=== PATIENT | female | born 1985 | race Caucasian/White ===

== ENCOUNTER 2018-08-31 21:56 | Inpatient (IN) | payer MEDICAID ==
[~2018-08-31] VITALS: Ht 157.5 cm; Wt 80.7 kg
[2018-08-31 22:15] VITALS: BP 127/90
--- NOTE | 2018-08-31 22:18 | NUR ---
TO LOBBY A/W BED, AMBULATORY
--- NOTE | 2018-08-31 23:10 | NUR ---
PT TAKEN TO BED 7.
--- NOTE | 2018-08-31 23:12 | NUR ---
DR. BURGOS BEDSIDE EVALUATING PT
--- NOTE | 2018-08-31 23:12 | NUR ---
33/F PRESENTS TO ED WITH FAMILY/FRIEND, C/O RUQ PAIN, X2 DAYS. REPORTS EXACERBATION AFTER EATING. REPORTS N/V X3 EPISODES TODAY. REPORTS DYSURIA. DENIES FEVER. PT AOX4, SKIN NORMAL WARM AND DRY, RR EVEN AND UNLABORED. LUNG SOUNDS CLEAR BL. BS ACTIVE X4, ABD SOFT ROUND TENDER TO RUQ. HX CHOLELITHIASIS (1 MONTH AGO) OTC MOTRIN WITHOUT RELIEF.
[2018-08-31] MEDS ORDERED: MORPHINE SULFATE 4 MG/ML SYR IVP ONE (23:25)
[2018-08-31] MEDS ORDERED: NACL 0.9% 1,000 ML IV ONE (23:25)
[2018-08-31] MEDS ORDERED: ONDANSETRON 4 MG/2 ML VIAL IVP ONE (23:25)
[2018-08-31 23:41] LABS: BASOPHILS # (AUTO) 0.1 K/uL (0.00-0.22); BASOPHILS % (AUTO) 0.6 % (0.0-2.0); EOSINOPHILS # (AUTO) 0.2 K/uL (0-0.4); EOSINOPHILS % (AUTO) 1.3 % (0.0-4.0); HEMOGLOBIN 12.6 g/dL (12.0-16.0); LYMPHOCYTES # (AUTO) 2.6 K/uL (2.5-16.5); LYMPHOCYTES % (AUTO) 20.9 % (20.5-51.1); MEAN CORPUSCULAR HEMOGLOBIN 28 pg (27-31); MEAN CORPUSCULAR HGB CONC 33 g/dL (33-37); MEAN CORPUSCULAR VOLUME 86.1 fL (80-94); MONOCYTES # (AUTO) 0.8 K/uL (0.8-1.0); NEUTROPHILS % (AUTO) 71.2 % (42.2-75.2); PLATELET COUNT (AUTO) 497 K/uL (140-450); RED BLOOD CELL COUNT(AUTO) 4.53 MIL/uL (4.20-5.40); RED CELL DISTRIBUTION WIDTH 13.3 % (11.6-13.7); WHITE BLOOD COUNT (AUTO) 12.7 K/uL (4.8-10.8)
[2018-08-31 23:41] LABS: APPEARANCE,URINE CLEAR (CLEAR); BILIRUBIN,URINE NEGATIVE (NEGATIVE); BLOOD, URINE NEGATIVE (NEGATIVE); COLOR,URINE YELLOW (YELLOW); LEUKOCYTE ESTERASE ,URINE TRACE (NEGATIVE); NITRITE, URINE NEGATIVE (NEGATIVE); UGLUCOSE NEGATIVE (NEGATIVE)
--- NOTE | 2018-08-31 23:44 | NUR ---
PT TAKEN TO CT
[2018-08-31 23:49] LABS: RBC,URINE 0-5 /HPF (0-5)
[2018-08-31 23:50] LABS: ANION GAP 12.5 (8-16); CARBON DIOXIDE 27.3 mmol/L (21-32); CREATININE 0.7 mg/dL (0.6-1.3); POTASSIUM 3.8 mmol/L (3.5-5.1)
[2018-08-31 23:57] LABS: ALBUMIN 3.6 g/dL (3.4-5.0); TOTAL BILIRUBIN 0.1 mg/dL (0.0-1.0)
[2018-09-01] MEDS ORDERED: PIPERACILLIN/TAZOBACTAM 4.5 GM in DEXTROSE 5% 100 ML IV ONE (00:50)
[2018-09-01] MEDS ORDERED: PIPERACILLIN/TAZOBACTAM 2.25 GM VIAL IV ONE (01:03)
[2018-09-01] MEDS ORDERED: DOCUSATE SODIUM 100 MG GELCAP PO PRN (01:05)
[2018-09-01] MEDS ORDERED: ONDANSETRON 4 MG/2 ML VIAL IM/IVP PRN (01:05)
[2018-09-01] MEDS ORDERED: NACL 0.9% 1,000 ML IV SCH (01:05)
[2018-09-01] MEDS ORDERED: ACETAMINOPHEN 325 MG TAB PO PRN (01:05)
--- NOTE | 2018-09-01 01:33 | NUR ---
Patient will be admitted to care of DR MARTÍNEZ. Admited to [facility]. Will go to room 112B. Belongings list completed. Report to MATHEUS MATUTE AT BEDSIDE
[2018-09-01 01:55] LABS: PROTHROMBIN TIME 8.9 secs (10.8-13.4)
[2018-09-01 02:00] VITALS: BP 121/70
--- NOTE | 2018-09-01 02:00 | NUR ---
RECIEVED PT. FROM ER , PER LETHA ,WITH C/O ABDOMINAL PAIN , HAD EPISODE OF VOMITING PRIOR TO ADMISSION , MED.SURG PT. IV SITE INTACT AND PATENT ,AAOX2 ,NOT ON DISTRESS. V/S STABLE ,ON NPO EXCEPT MEDS. AMBULATORY TO BED . WITH ZOSYN /IV STILL ON GOING. ADMISSION ASSESSEMENT DONE, PLAN OF CARE DISCUSSED ,VERBALIZE UNDERSTANDING ,MRSA COLLECTED AND SENT TO LAB. ECG DONE AT BEDSIDE , BED IN LOW POSITION, SIDERAILS UPX2 , CALL LIGHT WITHIN REACH ,WILL CONTINUE TO MONITOR.
[2018-09-01 02:01] LABS: BARBITURATE, URINE NEG. ng/ml (NEG <=200); BENZODIAZEPINE, URINE NEG. ng/mL (NEG <=200); CANNABINOID, URINE NEG. ng/mL (NEG <=50); COCAINE, URINE NEG. ng/mL (NEG <=300); OPIATE, URINE NEG. ng/mL (NEG <=2000); PHENCYCLIDINE SCREEN,URINE NEG. ng/mL (NEG <=25)
[2018-09-01 02:08] LABS: CHOL/HDL RATIO 2.5 (1-4.5); FREE T4 (FREE THYROXINE) 1.39 ng/dL (0.76-1.46); MAGNESIUM 1.9 mg/dL (1.8-2.4); PHOSPHORUS 4.2 mg/dL (2.5-4.9); THYROID STIMULATING HORMONE 1.37 uIU/mL (0.34-3.74)
--- NOTE | 2018-09-01 04:00 | NUR ---
V/S TAKEN WITHIN NORMAL LIMITS, IVF INFUSING WELL ,NPO EXCEPTS MEDS RE EMPHASIZED , CALL LIGHT WITHIN REACH ,WILL CONTINUE TO MONITOR
[2018-09-01] MEDS: HYDROcodone/APAP 10/325 MG 1 TAB TAB PO PRN (04:08)
[2018-09-01] MEDS ORDERED: PIPERACILLIN/TAZOBACTAM 3.375 GM in DEXTROSE 5% 50 ML IV SCH (06:00)
--- NOTE | 2018-09-01 06:00 | NUR ---
PT VISITED , WITH BEARABLE ABDL. PAIN AT THIS TIME PT. STATED , VOIDED FREELY ,CALL LIGHT WITHIN REACH .
--- NOTE | 2018-09-01 07:28 | NUR ---
ENDORSED TO AM SHIFT FOR CONTINUITY OF CARE .
--- NOTE | 2018-09-01 07:28 | NUR ---
RECEIVED BEDSIDE REPORT FROM MATHEUS MATUTE. PT STABLE, AWAKE, ALERT AND ORIENTED X4. NO SIGNS OF DISTRESS NOTED. NO REDNESS, SWELLING, OR INFLAMMATION NOTED ON IV SITE. PT NPO AT THIS TIME. FAMILY AT THE BEDSIDE. CALL HERNANDEZ WITHIN REACH. BED IN LOWEST POSITION. SAFETY MEASURES IN PLACE. PLAN OF CARE REVIEWED.
[2018-09-01] MEDS ORDERED: PIPERACILLIN/TAZOBACTAM 3.375 GM VIAL IV ONE ×2 (07:52→12:31)
[2018-09-01 08:00] VITALS: BP 129/54
[2018-09-01] MEDS: LACTOBACILLUS RHAMNOSUS GG 1 EACH CAP PO SCH (09:33)
--- NOTE | 2018-09-01 09:35 | NUR ---
ADMINISTERED SCHEDULED MEDICATIONS, PT TOLERATED WELL. NO OTHER NEEDS AT THIS TIME.
--- NOTE | 2018-09-01 10:21 | NUR ---
OBTAINED CONSENT FROM PT FOR LAPAROSCOPIC/POSSIBLE OPEN APPENDECTOMY.
[2018-09-01] MEDS ORDERED: PIPER/TAZO 3.375GM/D5W PREMIX 50 ML IV SCH (12:00)
--- NOTE | 2018-09-01 12:10 | NUR ---
SURGICAL CHECKLIST WAS NOT DONE DUE TO PT'S NAME WAS NOT ON THE OR BOARD. INSTRUCTED PT TO REMOVE ALL JEWELRY, ACCESSORIES, AND CLOTHING ASIDE FROM THE GOWN IN PREPARATION OF THE SURGERY. PT VERBALIZED UNDERSTANDING. CHECKED TEST, NEGATIVE. TYPE AND SCREEN DONE. PT TAKEN TO THE OR. Addendum: 09/01/18 at 1231 by Slim Logan RN GAVE REPORT TO JALOUSIES INSTALLERMATHEUS BONNER.
[2018-09-01] MEDS ORDERED: ONDANSETRON 4 MG/2 ML VIAL IVP ONE (12:13)
[2018-09-01] MEDS ORDERED: DESFLURANE 240 ML BTL INH ONE (12:13)
[2018-09-01] MEDS ORDERED: SUCCINYLCHOLINE CHLORIDE 200 MG/10 ML VIAL IV ONE (12:13)
[2018-09-01] MEDS ORDERED: KETOROLAC 30 MG/ML VIAL IVP ONE (12:13)
[2018-09-01] MEDS ORDERED: ROCURONIUM 50 MG/5 ML VIAL IV ONE (12:13)
[2018-09-01] MEDS ORDERED: LIDOCAINE 2% 100 MG/5 ML SYR IVP ONE (12:13)
[2018-09-01] MEDS ORDERED: PROPOFOL 200 MG/20 ML VIAL IV ONE (12:13)
[2018-09-01] MEDS ORDERED: DEXAMETHASONE 4 MG/ML VIAL IVP ONE (12:13)
[2018-09-01] MEDS ORDERED: BUPIVACAINE-MPF/EPI 0.25% 30 ML VIAL INJ ONE (12:33)
[2018-09-01] MEDS ORDERED: fentaNYL 0.05 MG/ML VIAL ONE (12:35)
[2018-09-01] MEDS ORDERED: MIDAZOLAM 2 MG/2 ML VIAL ONE (12:35)
[2018-09-01] MEDS ORDERED: ONDANSETRON 4 MG/2 ML VIAL IVP PRN (12:55)
[2018-09-01] MEDS: HYDROmorphone 1 MG/ML AMP IVP PRN ×4 (13:40→14:10)
[2018-09-01] MEDS ORDERED: HYDROmorphone PFS 2 MG/ML SYR ONE (13:59)
[2018-09-01 14:30] VITALS: BP 111/64
--- NOTE | 2018-09-01 14:30 | NUR ---
PT CAME BACK IN THE UNIT FROM OR. PT STABLE, AWAKE, ALERT AND ORIENTED X4. RECEIVED BEDSIDE REPORT FROM LAMBSKIN TRIMMER ALFREDA OLMOS. VITAL SIGNS TAKEN, PT STABLE. NO OTHER NEEDS AT THIS TIME.
[2018-09-01] MEDS: DEXT 5% / NACL 0.45% 1,000 ML IV SCH ×2 (14:53→23:11)
[2018-09-01] MEDS: MORPHINE SULFATE 2 MG/ML SYR IVP PRN ×2 (14:54→20:02)
--- NOTE | 2018-09-01 14:55 | NUR ---
ADMINISTERED SCHEDULED ZOSYN DUE TO IT WAS LAST GIVEN AT 0744. ADMINISTERED PRN MORPHINE FOR 10/10 ABDOMINAL PAIN. PT TOLERATED WELL. WILL CONTINUE TO MONITOR.
[2018-09-01 16:00] VITALS: BP 111/63
--- NOTE | 2018-09-01 16:20 | NUR ---
VITAL SIGNS TAKEN, PT STABLE. NO OTHER NEEDS AT THIS TIME.
--- NOTE | 2018-09-01 17:15 | NUR ---
PT IS STABLE AT THIS TIME. FAMILY AT THE BEDSIDE. PT DENIES PAIN OR SOB. WILL CONTINUE TO MONITOR.
--- NOTE | 2018-09-01 19:25 | NUR ---
RECIEVED PT ,AWAKE ON BED , S/P EX LAP ,APPENDECTOMY , SURGICAL INCISSION INTACT AND NO BLEEDING NOTED , V/S WNL , IV SITE INTACT AND PATENT , ON CLEAR LIQ. DIET , CALL LIGHT WITHIN REACH , BED IN LOW POSITION , SIDERAILS UP X2 ,PLAN OF CARE DISCUSSED , VERBALIZE UNDERSTANDING , WILL CONTINUE TO MONITOR.
--- NOTE | 2018-09-01 19:25 | NUR ---
ENDORSED PT TO MATHEUS MATUTE FOR CONTINUITY OF CARE. PT STABLE.
--- NOTE | 2018-09-01 20:05 | NUR ---
COMPLAINING OF PAIN , MORPHINE SO4 GIVEN ORDERED PRN FOR PAIN ,WILL CONTINUE TO MONITOR .
[2018-09-01 20:17] VITALS: BP 142/72
--- NOTE | 2018-09-01 21:00 | NUR ---
STILL IN PAIN -SURGICAL INCISSION I NTACT , TYLENOL GIVEN P.O ORDERED , WILL CONTINUE TO MONITOR.
[2018-09-01] MEDS: PIPER/TAZO 3.375GM/D5W PREMIX 50 ML IV SCH (21:14)
--- NOTE | 2018-09-01 22:00 | NUR ---
MADE ROUNDS , PT IS WITH BERABLE PAIN AT THIS TIME BUT COMPLAINING OF ITCHINESS ON ABDOMEN MORE PARTICULARLY ON INCISSION SITE , INCISSION SITE INTACT , REFERRED TO JOANIE FOR FURTHER ASSESSMENT , V/S WNL. CALL LIGHT WITHIN REACH
--- NOTE | 2018-09-01 22:22 | NUR ---
S/E BY GUY NAIR TAB. GIVEN P.O ORDERED FOR ITCHINESS ,WILL CONTINUE TO MONITOR , CALL LIGHT WITHIN REACH .
--- NOTE | 2018-09-02 | NUR ---
MADE ROUNDS , V/S WNL , COMPLAINING OF REDNESS IN THE LEFT EYE , S/E BY JOANIE , NO FUTHER ORDERS MADE , WILL CONTINUE TO MONITOR , CALL LIGHT WITHIN REACH .
--- NOTE | 2018-09-02 01:30 | NUR ---
MADE ROUNDS NO FURTHER COMPLAINS MADE AT THIS TIME .
[2018-09-02] MEDS: PIPER/TAZO 3.375GM/D5W PREMIX 50 ML IV SCH ×2 (02:39→08:38)
[2018-09-02] MEDS: DEXT 5% / NACL 0.45% 1,000 ML IV SCH (02:40)
--- NOTE | 2018-09-02 04:00 | NUR ---
V/S TAKEN WNL. PT. COMPLAINING OF PAIN IN INCISSION SITE THERE IS BLOOD STREAK ON IT , REFER TO JOANIE FOR FURTHER ASSESSMENT OF BLOOD STREAK ON SURGICAL WOUND. WILL MEDICATE FOR PAIN ORDERED.
[2018-09-02] MEDS: MORPHINE SULFATE 2 MG/ML SYR IVP PRN (04:42)
--- NOTE | 2018-09-02 04:45 | NUR ---
S/E BY JOANIE NAIR SAID THE BLOOD STREAK ON SURGICAL WOUND IS OK LONG DON'T STRACH IT. NO ACTIVE BLEEDING NOTED ,SURGICAL WOUND IS INTACT. MORPHINE SO4 TIV GIVEN FOR PAIN ORDERED , CALL LIGHT WITHIN ,WILL CONTINUE TO MONITOR.
--- NOTE | 2018-09-02 06:00 | NUR ---
MADE ROUNDS , SLEEPING ON BED , NO S/SX OF DISTRESS NOTED AT THIS TIME. CALL LIGHT IS WITHIN REACH.
--- NOTE | 2018-09-02 06:32 | NUR ---
PATIENT HAS BEEN SCREENED AND CATEGORIZED LOW NUTRITION RISK. PATIENT WILL BE SEEN WITHIN 7 DAYS OF ADMISSION. 09/07/18 CLEMENT VALERA MS, RDN
--- NOTE | 2018-09-02 07:25 | NUR ---
ENDORSED TO AM SHIFT NURSE FOR CONTINUITY OF CARE.
--- NOTE | 2018-09-02 07:26 | NUR ---
RECEIVED BEDSIDE REPORT FROM NIGHT NURSE. PT IS STABLE WITH NO DISTRESS BREATHING UNLABORED. PT HAS A THREE SEALED INCISIONS ON ABDOMEN FROM LAPOROSCOPIC APPENDECTOMY ACCORDING TO NIGHT NURSE ON 09/01. ASSESSED THESE AND FOUND NO DRAINAGE, SWELLING, REDNESS, WARMTH. PATIENT HAS LEFT ANTECUBITAL IV THAT IS PATENT AND ASYMPTOMATIC WITH D5 1/2 NS AT 100ML/HR AT THIS TIME. ALL SAFETY MEASURES IN PLACE WITH CALL LIGHT WITHIN REACH. PT IS AOX4.
[2018-09-02 08:00] VITALS: BP 121/80
[2018-09-02 08:02] LABS: BASOPHILS % (AUTO) 0.1 % (0.0-2.0); EOSINOPHILS % (AUTO) 0.1 % (0.0-4.0); HEMATOCRIT 34.5 % (36-48); HEMOGLOBIN 11.3 g/dL (12.0-16.0); LYMPHOCYTES # (AUTO) 1.6 K/uL (2.5-16.5); LYMPHOCYTES % (AUTO) 11.2 % (20.5-51.1); MEAN CORPUSCULAR HEMOGLOBIN 28 pg (27-31); MEAN CORPUSCULAR HGB CONC 33 g/dL (33-37); MEAN CORPUSCULAR VOLUME 86.4 fL (80-94); MONOCYTES # (AUTO) 0.7 K/uL (0.8-1.0); MONOCYTES % (AUTO) 4.6 % (1.7-9.3); NEUTROPHILS # (AUTO) 11.9 K/uL (1.8-7.7); PLATELET COUNT (AUTO) 468 K/uL (140-450); RED BLOOD CELL COUNT(AUTO) 3.99 MIL/uL (4.20-5.40); RED CELL DISTRIBUTION WIDTH 13.2 % (11.6-13.7); WHITE BLOOD COUNT (AUTO) 14.2 K/uL (4.8-10.8)
--- NOTE | 2018-09-02 08:15 | NUR ---
SPOKE WITH DR ZELAYA AND INFORMED HER OF PATIENT REPORTED 10/10 PAIN AND LAST DOSAGE OF MORPHINE ADMINISTRATION. SHE INFORMED ME TO ADMINISTER NORCO FOR THE PATIENT. ALSO CLARIFIED WITH HER THE DILAUDID ORDER THAT WAS ACTIVE REGARDING [id number] FOR PAIN. SHE INFORMED ME SHE WOULD DC THAT ORDER.
[2018-09-02] MEDS ORDERED: NACL 0.9% 1,000 ML IV SCH (08:20)
--- NOTE | 2018-09-02 08:20 | NUR ---
DR MATA VERBALLY INFORMED ME AT BEDSIDE THAT PATIENT WOUND CARE TO BE BAND AIDS TO EACH INCISION SITE, ADVANCE TO REGULAR DIET, AND HE HAS CLEARED THE PATIENT FOR DISCHARGE ON HIS ASSESSMENT AND TO INFORM THE RESIDENT MD OF THIS. INFORMED DR HOLLINS.
[2018-09-02 08:23] LABS: ANION GAP 13.9 (8-16); CARBON DIOXIDE 26.1 mmol/L (21-32); CREATININE 0.9 mg/dL (0.6-1.3)
--- NOTE | 2018-09-02 08:30 | NUR ---
CLARIFIED WITH DR HOLLINS OF [facility] PT SHOULD BE ON NS AT 60ML/HR OR CONTINUE THE D5 1/2 NS IV THERAPY. HE CONFIRMED TO GIVE THE NORMAL SALINE ORDERED.
[2018-09-02] MEDS: LACTOBACILLUS RHAMNOSUS GG 1 EACH CAP PO SCH (08:37)
[2018-09-02] MEDS: HYDROcodone/APAP 10/325 MG 1 TAB TAB PO PRN (08:38)
--- NOTE | 2018-09-02 08:40 | NUR ---
PT RESTING IN BED NO REQUESTS AT THIS TIME, AT BEDSIDE. NO SIGNS OF DISTRESS BREATHING UNLABORED.
[2018-09-02 09:05] LABS: MAGNESIUM 1.8 mg/dL (1.8-2.4); PHOSPHORUS 3.3 mg/dL (2.5-4.9)
--- NOTE | 2018-09-02 10:15 | NUR ---
APPLIED THREE BANDAIDS TOTAL TO THE THREE ABDOMINAL SURGICAL INCISIONS SITES PER DR MATA'S REQUEST TO ME DIRECTLY.
--- NOTE | 2018-09-02 10:52 | NUR ---
PT RESTING IN BED, SITTING IN BED WITH HER WHILE PT TALKS ON PHONE. PT DENIES ANY REQUESTS AND HAS NO SIGNS OF DISTRESS AT THIS TIME.
--- NOTE | 2018-09-02 11:05 | NUR ---
PT ASKING IF SHE CAN BRING BALLOONS. INFORMED HER SHE CAN'T, NO OTHER REQUESTS AT THIS TIME.
[2018-09-02] MEDS ORDERED: LEVO500T2 PO (12:05)
[2018-09-02] MEDS ORDERED: HYDR-5122 PO (12:06)
--- NOTE | 2018-09-02 12:09 | NUR ---
DR ZELAYA CALLED ME AND ASKED IF I COULD AMBULATE PATIENT AND HAVE HER EAT A REGULAR MEAL PRIOR TO DISCHARGE TO SEE HOW SHE TOLERATES BOTH BEFORE LEAVING HOSPITAL.
--- NOTE | 2018-09-02 12:20 | NUR ---
PT IS RESTING IN BED ABOUT TO EAT LUNCH NO REQUESTS OR SIGNS OF DISTRESS. MALE VISITOR AT BEDSIDE HAS NO REQUEST EITHER.
--- NOTE | 2018-09-02 13:06 | NUR ---
PATIENT ATE REGULAR MEAL LUNCH STATES SHE TOLERATED IT WELL AND FEELS OKAY. ASSISTED PT STAND BY ASSIST TO BATHROOM WHERE SHE STATES SHE IS GOING TO TRY AND HAVE A BOWEL MOVEMENT. PT ABLE TO AMBULATE WHILE HOLDING IV POLE SLOWLY, BUT STEADY.
--- NOTE | 2018-09-02 13:15 | NUR ---
AMBULATED WITH PATIENT ABOUT 100 FEET, PT TOLERATED SLOW AND STEADY JUST STATING SHE IS STILL SORE AND NEEDS TO TAKE THINGS SLOWLY.
--- NOTE | 2018-09-02 13:25 | NUR ---
INFORMED DR ZELAYA OF PATIENT AMBULATION, LACK OF BOWEL MOVEMENT TODAY, AND PT ASKING IF SHE IS GOING TO GET A PAIN PRESCRIPTION. DR. ZELAYA STATES SHE WILL PROVIDE ME WITH PRESCRIPTION TO GIVE PATIENT AND THEN SHE IS OKAY TO DISCHARGE.
--- NOTE | 2018-09-02 14:34 | NUR ---
REVIEWED DISCHARGE PAPERWORK WITH PATIENT. PT IS ACCOMPANIED BY AND MALE VISITOR. IV REMOVED WITH TIP INTACT. ID BANDS REMOVED, PT REQUESTED THE BANDS BE ADDED TO HER DISCHARGE PACKET FOR HER DAUGHTER TO KEEP. DID SO PER HER REQUEST. PRESCRIPTIONS WITH PATIENT AND ALSO REVIEWED WITH PATIENT. ALL BELONGINGS WITH PATIENT AND CLOSETS AND DRAWERS ASSESSED. 3 DISCHARGE PHOTOGRAPHS TAKEN FOR EACH SURGICAL INCISION ON ABDOMEN. IV LINES DISPOSED OF IN ROOM WITH ALL PATIENT IDENTIFIERS REMOVED. WHEELCHAIRED PATIENT TO FRONT OF HOSPITAL WHERE HER DROVE HER HOME.
[2018-09-04 06:12] LABS: CHLAMYDIA TRACHOMATIS AMP DNA Negative (Negative)
== END 2018-09-02 14:47 | disposition home or self-care (01) | DRG 342 ==
LOC: MED 21:56 → MTU 09-01 01:04
PROVIDERS: ADMIT General Practice; ATTEND General Practice
PROC: 0DTJ4ZZ Resection of Appendix, Percutaneous Endoscopic Approach (ICD-10-PCS; principal; 2018-09-01 12:30)
DX: K35.80 Unspecified acute appendicitis (principal); N39.0 Urinary tract infection, site not specified; K57.90 Diverticulosis of intestine, part unspecified, without perforation or abscess without bleeding; N83.201 Unspecified ovarian cyst, right side; E66.9 Obesity, unspecified; Z68.32 Body mass index [BMI] 32.0-32.9, adult
CPT/HCPCS: 36415; 71045; 80048; 80053; 80305; 81001; 82150; 82374; 83036; 83690; 83735; 83880; 84100; 84134; 84439; 84443; 84484; 85025; 85610; 85730; 86886; 86900; 86901; 87040; 87081; 87086; 87491; 88304; 93005; 96361; 96365; 96375; 99285; J0330; J1100; J1170; J1644; J1885; J2001; J2250; J2270; J2405; J2543; J2704; J3010; J3490; J7030; J7060; Q0092; Q0163

== ENCOUNTER 2018-09-09 01:06 | Emergency (ER) | payer MEDICAID ==
[~2018-09-09] VITALS: Ht 154.9 cm; Wt 83.9 kg
[~2018-09-09 01:06] MED LIST: HYDR-5122 PO; LEVO500T2 PO
[2018-09-09 01:13] VITALS: BP 126/82
--- NOTE | 2018-09-09 01:20 | NUR ---
PT BIB SELF FOR UPPER ABD PAIN SINCE YESTERDAY. PT STATES SHE WAS LAYING DOWN WHEN PAIN STARTED. INCISIONS NOTED TO ABD , APPEARS TO BE HEALING WELL, NO DRAINAGE OR BLEEDING. ABD IS ROUND, SOFT, TENDER TO UPPER QUADRANTS. PT IS AWAKE AND ALERT, AT BEDSIDE.
--- NOTE | 2018-09-09 01:25 | NUR ---
DR OLEA AT BEDSIDE EVALUATING PT.
[2018-09-09] MEDS ORDERED: MORPHINE SULFATE 4 MG/ML SYR IVP ONE (01:30)
[2018-09-09] MEDS ORDERED: NACL 0.9% 1,000 ML IV ONE (01:30)
[2018-09-09 01:57] LABS: BASOPHILS % (AUTO) 0.4 % (0.0-2.0); EOSINOPHILS # (AUTO) 0.2 K/uL (0-0.4); EOSINOPHILS % (AUTO) 1.5 % (0.0-4.0); HEMATOCRIT 36.1 % (36-48); HEMOGLOBIN 11.8 g/dL (12.0-16.0); LYMPHOCYTES # (AUTO) 2.8 K/uL (2.5-16.5); LYMPHOCYTES % (AUTO) 25.4 % (20.5-51.1); MEAN CORPUSCULAR HEMOGLOBIN 28 pg (27-31); MEAN CORPUSCULAR HGB CONC 33 g/dL (33-37); MONOCYTES # (AUTO) 0.8 K/uL (0.8-1.0); MONOCYTES % (AUTO) 7.6 % (1.7-9.3); NEUTROPHILS # (AUTO) 7.1 K/uL (1.8-7.7); NEUTROPHILS % (AUTO) 65.1 % (42.2-75.2); PLATELET COUNT (AUTO) 477 K/uL (140-450); RED CELL DISTRIBUTION WIDTH 13.6 % (11.6-13.7)
[2018-09-09 01:58] LABS: APPEARANCE,URINE HAZY (CLEAR); BILIRUBIN,URINE NEGATIVE (NEGATIVE); BLOOD, URINE NEGATIVE (NEGATIVE); COLOR,URINE YELLOW (YELLOW); LEUKOCYTE ESTERASE ,URINE 2+ (NEGATIVE); NITRITE, URINE NEGATIVE (NEGATIVE); UGLUCOSE NEGATIVE (NEGATIVE)
[2018-09-09 02:11] LABS: RBC,URINE 0-5 /HPF (0-5)
[2018-09-09 02:13] LABS: ANION GAP 11.3 (8-16); CARBON DIOXIDE 27.6 mmol/L (21-32); CREATININE 0.7 mg/dL (0.6-1.3); POTASSIUM 3.9 mmol/L (3.5-5.1)
[2018-09-09 02:20] LABS: ALBUMIN 3.5 g/dL (3.4-5.0); TOTAL BILIRUBIN 0.2 mg/dL (0.0-1.0)
--- NOTE | 2018-09-09 03:02 | NUR ---
PT BACK IN BED FROM BR, SAFETY PRECAUTIONS IMPLEMENTED; PT POSITIONED FOR COMFORT.
[2018-09-09] MEDS ORDERED: cefTRIAXone 1,000 MG VIAL ONE (03:10)
[2018-09-09 03:24] VITALS: BP 121/79
--- NOTE | 2018-09-09 03:24 | NUR ---
Patient discharged with v/s stable. Written and verbal after care instructions given and explained. Patient alert, oriented and verbalized understanding of instructions. Ambulatory with steady gait. All questions addressed prior to discharge. ID band removed. Patient advised to follow up with PMD. Rx of Acetaminophen and Macrobid given. Patient educated on indication of medication including possible reaction and side effects. Opportunity to ask questions provided and answered.
== END 2018-09-09 03:24 | disposition home or self-care (01) ==
LOC: MED 01:06
DX: K80.80 Other cholelithiasis without obstruction (principal); N39.0 Urinary tract infection, site not specified; Z90.49 Acquired absence of other specified parts of digestive tract; Z79.899 Other long term (current) drug therapy
CPT/HCPCS: 36415; 76705; 80053; 81001; 81025; 82150; 83690; 85025; 87086; 96365; 96375; 99284; J0696; J2270; J7030; Q0092

== ENCOUNTER 2018-09-19 23:54 | Inpatient (IN) | payer MEDICAID ==
[~2018-09-19] VITALS: Ht 154.9 cm; Wt 83.9 kg
[2018-09-19 23:58] VITALS: BP 118/83
--- NOTE | 2018-09-19 23:58 | NUR ---
TO BED # 08 AMBULATORY
--- NOTE | 2018-09-20 00:05 | NUR ---
Mahesh blanco in ED - 09/20/18 at 0149 by BILL PT AMBULATED TO BATHROOM. COMFORT MEASURES OFFERED. PT TOLERATED WELL. EMD MADE AWARE.
[2018-09-20] MEDS ORDERED: NACL 0.9% 1,000 ML IV ONE (00:15)
[2018-09-20] MEDS ORDERED: MORPHINE SULFATE 4 MG/ML SYR IVP ONE (00:15)
--- NOTE | 2018-09-20 00:15 | NUR ---
PT CAME INTO ER C/O OF UPPER QUADRANT PAIN. PAIN LEVEL 10/10, STABBING PAIN. PT STATED "I HAVE GALLSTONES, AND YESTERDAY THE PAIN BECAME WORSE." DENIES N/V/D. PT HAD APPENDIX REMOVED ON SEPTEMBER 01. SAFETY MEASURES IN PLACE. WAITING FOR ERMD TO EVALUATE PT.
[2018-09-20] MEDS ORDERED: PIPERACILLIN/TAZOBACTAM 3.375 GM in DEXTROSE 5% 50 ML IV ONE (00:25)
[2018-09-20] MEDS ORDERED: ACETAMINOPHEN 325 MG TAB PO PRN (00:25)
[2018-09-20] MEDS ORDERED: ONDANSETRON 4 MG/2 ML VIAL IVP PRN (00:25)
[2018-09-20 00:35] LABS: BASOPHILS # (AUTO) 0.1 K/uL (0.00-0.22); BASOPHILS % (AUTO) 0.7 % (0.0-2.0); EOSINOPHILS # (AUTO) 0.2 K/uL (0-0.4); EOSINOPHILS % (AUTO) 2.3 % (0.0-4.0); HEMATOCRIT 34.4 % (36-48); HEMOGLOBIN 11.1 g/dL (12.0-16.0); LYMPHOCYTES # (AUTO) 2.5 K/uL (2.5-16.5); LYMPHOCYTES % (AUTO) 29.8 % (20.5-51.1); MEAN CORPUSCULAR HEMOGLOBIN 28 pg (27-31); MEAN CORPUSCULAR HGB CONC 32 g/dL (33-37); MONOCYTES # (AUTO) 0.8 K/uL (0.8-1.0); MONOCYTES % (AUTO) 10.1 % (1.7-9.3); NEUTROPHILS # (AUTO) 4.7 K/uL (1.8-7.7); NEUTROPHILS % (AUTO) 57.1 % (42.2-75.2); PLATELET COUNT (AUTO) 458 K/uL (140-450); RED CELL DISTRIBUTION WIDTH 13.6 % (11.6-13.7); WHITE BLOOD COUNT (AUTO) 8.2 K/uL (4.8-10.8)
[2018-09-20 00:38] LABS: APPEARANCE,URINE CLEAR (CLEAR); BILIRUBIN,URINE NEGATIVE (NEGATIVE); BLOOD, URINE 2+ (NEGATIVE); COLOR,URINE YELLOW (YELLOW); LEUKOCYTE ESTERASE ,URINE TRACE (NEGATIVE); NITRITE, URINE NEGATIVE (NEGATIVE); UGLUCOSE NEGATIVE (NEGATIVE)
[2018-09-20] MEDS ORDERED: DOCU100C31 PO (00:41)
[2018-09-20] MEDS ORDERED: NITR100C7 PO (00:41)
[2018-09-20] MEDS ORDERED: IBUP-1801 PO (00:41)
--- NOTE | 2018-09-20 00:50 | NUR ---
PT AMBULATED TO BATHROOM. COMFORT MEASURES OFFERED. PT TOLERATED WELL. EMD MADE AWARE.
[2018-09-20 00:52] LABS: ALBUMIN 3.5 g/dL (3.4-5.0); ANION GAP 13.8 (8-16); CREATININE 0.7 mg/dL (0.6-1.3); POTASSIUM 3.8 mmol/L (3.5-5.1); TOTAL BILIRUBIN 0.1 mg/dL (0.0-1.0)
[2018-09-20 00:53] LABS: BARBITURATE, URINE NEG. ng/ml (NEG <=200); BENZODIAZEPINE, URINE NEG. ng/mL (NEG <=200); CANNABINOID, URINE NEG. ng/mL (NEG <=50); COCAINE, URINE NEG. ng/mL (NEG <=300); OPIATE, URINE NEG. ng/mL (NEG <=2000); PHENCYCLIDINE SCREEN,URINE NEG. ng/mL (NEG <=25)
[2018-09-20] MEDS: DEXT 5% /NACL 0.9% 1,000 ML IV SCH ×2 (01:00→21:00)
[2018-09-20 01:04] LABS: FREE T4 (FREE THYROXINE) 1.49 ng/dL (0.76-1.46); MAGNESIUM 1.9 mg/dL (1.8-2.4); PHOSPHORUS 3.6 mg/dL (2.5-4.9); THYROID STIMULATING HORMONE 2.44 uIU/mL (0.34-3.74)
[2018-09-20] MEDS ORDERED: PIPERACILLIN/TAZOBACTAM 3.375 GM VIAL IV ONE (01:08)
[2018-09-20 01:15] LABS: RBC,URINE 0-5 /HPF (0-5); WBC,URINE 0-5 /HPF (0-5)
--- NOTE | 2018-09-20 01:20 | NUR ---
DELAY OF ADMIT DUE TO ULTRASOUND, CULTURE LAB DRAWS. CHARGE NURSE CARLA SHELLEY AND MELITON MADE AWARE.
[2018-09-20 01:40] VITALS: BP 122/75
--- NOTE | 2018-09-20 01:40 | NUR ---
Patient will be admitted to care of DR. MARTÍNEZ. Admited to [facility]. Will go to room 126A. Belongings list completed. Report to MATHEUS VIDES. VSS.
--- NOTE | 2018-09-20 01:40 | NUR ---
RECEIVED PT FROM ED NURSE AT BEDSIDE. PT IN STABLE CONDITION. AAOX4. INTRODUCED SELF TO PT. BOARD UPDATED. NO COMPLAINTS OF PAIN. NO SOB. AFEBRILE. PT IS AMBULATORY. MRSA NARES SENT TO LAB. IV SITE R AC 20G RUNNING D5NS@50ML/HR PATENT AND INTACT. SKIN WARM, DRY, AND INTACT WITH NO OPEN WOUNDS. BED LOCKED IN LOW POSITION. CALL HERNANDEZ WITHIN REACH. SAFETY PRECAUTION IN PLACE. ALL NEEDS MET AT THIS TIME.
--- NOTE | 2018-09-20 01:40 | NUR ---
Pt report given to CARLA VIDES RN. Transfer of care at this time.
[2018-09-20] MEDS ORDERED: cefTRIAXone 1,000 MG VIAL ONE (02:11)
--- NOTE | 2018-09-20 02:21 | NUR ---
YULY GAYLE AND RUNNING. PT TOLERATING WELL.
[2018-09-20] MEDS: HYDROcodone/APAP 7.5/325 MG 1 TAB PO PRN ×4 (02:26→21:17)
--- NOTE | 2018-09-20 02:26 | NUR ---
PT COMPLAINS OF 6/10 ABDOMINAL PAIN. NORCO GIVEN. PT TOLERATED WELL.
[2018-09-20] MEDS: PANTOPRAZOLE 40 MG INJ VIAL IVP SCH (05:53)
--- NOTE | 2018-09-20 05:53 | NUR ---
PROTONIX GIVEN IVP. PT TOLERATED WELL.
--- NOTE | 2018-09-20 06:30 | NUR ---
WENT TO BR TO VOID, BACK TO BED AFTER VOIDING.
--- NOTE | 2018-09-20 06:43 | NUR ---
SLEEPING COMFORTABLY IN BED, CONDITION REMAIN STABLE. WILL ENDORSED TO AM NURSE FOR CONTINUITY OF CARE.
--- NOTE | 2018-09-20 07:25 | NUR ---
RECEIVED BED SIDE REPORT FROM PAINT DIPPER RN. PT IN STABLE CONDITION
[2018-09-20 08:00] VITALS: BP 122/81
--- NOTE | 2018-09-20 09:09 | NUR ---
PATIENT HAS BEEN SCREENED AND CATEGORIZED MODERATE NUTRITION RISK. PATIENT WILL BE SEEN WITHIN 3-5 DAYS OF ADMISSION. 09/23/1812/06PATSY GARCIA MBA, RD
--- NOTE | 2018-09-20 09:31 | NUR ---
PT COMPLAINS OF 6/10 RIGHT AND LEFT SIDE ABDOMINAL PAIN. PT WAS GIVEN NORCO AT 0550. HIDA SCAN TO BE DONE AT 1000. NO PAIN MEDS TO BE GIVEN PRIOR TO. PT MADE AWARE. PT IS NPO EXCEPT MEDS. COLACE TO BE GIVEN THIS MORNING. D5NS RUNNING AT 50CC/HR THROUGH RIGHT AC 20G. SKIN INTACT. WILL CONTINUE TO MONITOR
[2018-09-20] MEDS: DOCUSATE SODIUM 100 MG GELCAP PO SCH ×2 (09:44→21:06)
[2018-09-20 16:00] VITALS: BP 122/85
[2018-09-20] MEDS: KETOROLAC 15 MG/ML VIAL IVP PRN (17:57)
[2018-09-20] MEDS ORDERED: MORPHINE SULFATE 2 MG/ML SYR IVP ONE (18:50)
--- NOTE | 2018-09-20 19:00 | NUR ---
GAVE PT MORPHINE PER ORDERS. GAVE TORADOL, TYLENOL AND NORCO EARLIER TODAY. NONE OF THEM WORKED.
--- NOTE | 2018-09-20 19:00 | NUR ---
GAVE BED SIDE REPORT TO REFRIGERATION ENGINEERING TEACHER REFRIGERATION ENGINEERING TEACHER MATHEUS CABRAL. PT IN STABLE CONDITION
--- NOTE | 2018-09-20 19:01 | NUR ---
RECD. RESTING IN BED, AWAKE, A/OX4, CONVERSING WITH VISITORS AT THE BEDSIDE. IV OF D5NS AT 50 ML/HR INFUSING, RIGHT AC G20. PLAN OF CARE FOR THE SHIFT DISCUSSED. VERBALIZED UNDERSTANDING. PAIN IN THE ABDOMEN 06/27, WAS MEDICATED BY AM NURSE AT 1858. TOLERATING WELL FULL LIQUID DIET.
[2018-09-20 20:00] VITALS: BP 103/48
--- NOTE | 2018-09-20 20:00 | NUR ---
Patient's Plan of Care was discussed and reviewed with BULL FIDDLE PLAYER: FMA. WILL CONTINUE WITH CURRENT POC.
--- NOTE | 2018-09-20 21:06 | NUR ---
CONVERSING WITH SOMEBODY IN HER CELLPHONE, DUE PO MEDICATION GIVEN.
--- NOTE | 2018-09-21 | NUR ---
STILL AWAKE, WATCHING TV.
[2018-09-21] MEDS: KETOROLAC 15 MG/ML VIAL IVP PRN (02:06)
--- NOTE | 2018-09-21 02:30 | NUR ---
SLEEPING COMFORTABLY IN BED.
--- NOTE | 2018-09-21 05:17 | NUR ---
IN BED, SLEEPING SOUNDLY.
[2018-09-21] MEDS: PANTOPRAZOLE 40 MG INJ VIAL IVP SCH (05:34)
--- NOTE | 2018-09-21 07:25 | NUR ---
RESTING COMFORTABLY IN BED. COMPLAINT OF PAIN ATTENDED PROMPTLY, MEDICATED ORDERED. ENDORSED TO AM NURSE FOR CONTINUITY OF CARE.
--- NOTE | 2018-09-21 07:30 | NUR ---
RECEIVED PT FROM MED SPECIALIST NURSE, PT IS ASLEEP AND LYING ON THE BED, RESPIRATION IS EVEN, IV LINE ON THE RT AC G. 20 WITH D5NS INFUSING, SIDE RAILS ARE UP AND CALL LIGHT WITHIN REACH, NO SIGN OF DISTRESS NOTED AND WILL MONITOR PT.
[2018-09-21] MEDS ORDERED: ACET-9529 PO (07:33)
[2018-09-21 08:00] VITALS: BP 116/70
[2018-09-21] MEDS: HYDROcodone/APAP 7.5/325 MG 1 TAB PO PRN (09:22)
[2018-09-21] MEDS: DOCUSATE SODIUM 100 MG GELCAP PO SCH (09:22)
--- NOTE | 2018-09-21 09:23 | NUR ---
PT IS AWAKE AND LYING ON THE BED, V/S CHECKED AND IS WITHIN LIMIT. ORAL MEDCIATIONS WERE GIVEN AND PT TOLERATED IT. WILL CONTINUE TO MONITOR PT.
--- NOTE | 2018-09-21 10:22 | NUR ---
PAIN RE-ASSESSMENT WAS DONE TO PT NOW, PT IS SLEEPING SOUNDLY.
[2018-09-21 11:45] LABS: BASOPHILS % (AUTO) 0.6 % (0.0-2.0); EOSINOPHILS # (AUTO) 0.1 K/uL (0-0.4); EOSINOPHILS % (AUTO) 1.3 % (0.0-4.0); HEMATOCRIT 35.1 % (36-48); HEMOGLOBIN 11.6 g/dL (12.0-16.0); LYMPHOCYTES # (AUTO) 1.4 K/uL (2.5-16.5); LYMPHOCYTES % (AUTO) 21.4 % (20.5-51.1); MEAN CORPUSCULAR HEMOGLOBIN 28 pg (27-31); MEAN CORPUSCULAR HGB CONC 33 g/dL (33-37); MEAN CORPUSCULAR VOLUME 85.6 fL (80-94); MONOCYTES # (AUTO) 0.4 K/uL (0.8-1.0); MONOCYTES % (AUTO) 5.6 % (1.7-9.3); NEUTROPHILS # (AUTO) 4.8 K/uL (1.8-7.7); NEUTROPHILS % (AUTO) 71.1 % (42.2-75.2); PLATELET COUNT (AUTO) 464 K/uL (140-450); RED CELL DISTRIBUTION WIDTH 13.2 % (11.6-13.7); WHITE BLOOD COUNT (AUTO) 6.7 K/uL (4.8-10.8)
[2018-09-21 12:03] LABS: CHOL/HDL RATIO 2.3 (1-4.5)
[2018-09-21 12:08] LABS: ALBUMIN 3.2 g/dL (3.4-5.0); ANION GAP 13.2 (8-16); CARBON DIOXIDE 25.6 mmol/L (21-32); CREATININE 0.9 mg/dL (0.6-1.3); MAGNESIUM 1.8 mg/dL (1.8-2.4); PHOSPHORUS 3.7 mg/dL (2.5-4.9); POTASSIUM 3.8 mmol/L (3.5-5.1); TOTAL BILIRUBIN 0.3 mg/dL (0.0-1.0)
[2018-09-21] MEDS: DEXT 5% /NACL 0.9% 1,000 ML IV SCH (12:55)
--- NOTE | 2018-09-21 13:40 | NUR ---
DISCHARGED PT TO HOME VIA WHEELCHAIR, WITH FAMILY, TEACHINGS AND INSTRUCTIONS GIVEN TO PT AND VERBALIZED UNDERSTANDING. IV AND ARM BANDS REMOVED AND PT IS STABLE AT THIS TIME.
== END 2018-09-21 13:40 | disposition home or self-care (01) ==
LOC: MED 23:54 → MMU 09-20 00:25
PROVIDERS: ADMIT General Practice; ATTEND General Practice
DX: K80.20 Calculus of gallbladder without cholecystitis without obstruction (principal); E66.01 Morbid (severe) obesity due to excess calories; K57.90 Diverticulosis of intestine, part unspecified, without perforation or abscess without bleeding; D64.9 Anemia, unspecified; N39.0 Urinary tract infection, site not specified; N83.201 Unspecified ovarian cyst, right side; Z68.35 Body mass index [BMI] 35.0-35.9, adult; Z71.3 Dietary counseling and surveillance; Z90.49 Acquired absence of other specified parts of digestive tract
CPT/HCPCS: 36415; 71045; 76705; 78445; 80053; 80305; 81001; 82150; 82607; 82728; 82746; 83036; 83540; 83690; 83735; 83880; 84100; 84439; 84443; 84484; 85025; 85045; 85610; 85730; 87040; 87081; 87086; 93005; A9510; C9113; J0696; J1885; J2270; J2543; J7042; J7060; Q0092

== ENCOUNTER 2019-03-30 03:12 | Emergency (ER) | payer MEDICAID ==
[~2019-03-30] VITALS: Ht 154.9 cm; Wt 79.4 kg
[~2019-03-30 03:12] MED LIST changes: +ACET-9529 PO; +DOCU100C31 PO; -HYDR-5122 PO; +IBUP-1801 PO; -LEVO500T2 PO
--- NOTE | 2019-03-30 03:25 | NUR ---
PT AMBULATED TO ER BED 09
[2019-03-30 03:28] VITALS: BP 133/80
--- NOTE | 2019-03-30 03:35 | NUR ---
33 Y/O FEMALE PRESENTS TO ED, C/O ABDOMINAL PAIN 12/27. PT STATES PAIN STARTED YESTERDAY. PAIN DOES NOT RADIATE. PT HAS HX OF GALLSTONES, ONE MONTH AGO. PT C/O OF NAUSEA, NO VOMITING. BS ACTIVE X4 QUADRANTS. PT DENIES ANY DIARRHEA. LAST BM WAS YESTERDAY. PT TOOK MOTRIN BUT WITH NO RELIEF. PT VSS. ERMD AWARE. WILL CONTINUE TO MONITOR.
[2019-03-30] MEDS ORDERED: NACL 0.9% 500 ML IV ONE (03:44)
[2019-03-30] MEDS ORDERED: ONDANSETRON 4 MG/2 ML VIAL IVP ONE (03:45)
[2019-03-30] MEDS ORDERED: KETOROLAC 30 MG/ML VIAL IVP ONE (03:45)
--- NOTE | 2019-03-30 04:05 | NUR ---
BLOOD DRAWN AND SENT TO LAB AT THIS TIME
[2019-03-30 04:18] LABS: BASOPHILS % (AUTO) 0.5 % (0.0-2.0); EOSINOPHILS # (AUTO) 0.2 K/uL (0-0.4); EOSINOPHILS % (AUTO) 1.8 % (0.0-4.0); HEMATOCRIT 37.8 % (36-48); HEMOGLOBIN 12.4 g/dL (12.0-16.0); LYMPHOCYTES % (AUTO) 23.5 % (20.5-51.1); MEAN CORPUSCULAR HEMOGLOBIN 28 pg (27-31); MEAN CORPUSCULAR HGB CONC 33 g/dL (33-37); MEAN CORPUSCULAR VOLUME 86.7 fL (80-94); MONOCYTES # (AUTO) 0.9 K/uL (0.8-1.0); MONOCYTES % (AUTO) 10.1 % (1.7-9.3); NEUTROPHILS # (AUTO) 5.5 K/uL (1.8-7.7); NEUTROPHILS % (AUTO) 64.1 % (42.2-75.2); PLATELET COUNT (AUTO) 380 K/uL (140-450); RED BLOOD CELL COUNT(AUTO) 4.36 MIL/uL (4.20-5.40); RED CELL DISTRIBUTION WIDTH 15.3 % (11.6-13.7); WHITE BLOOD COUNT (AUTO) 8.6 K/uL (4.8-10.8)
[2019-03-30 04:36] LABS: ANION GAP 8.6 (8-16); CARBON DIOXIDE 28.2 mmol/L (21-32); CREATININE 0.7 mg/dL (0.6-1.3); POTASSIUM 3.8 mmol/L (3.5-5.1)
[2019-03-30 04:43] LABS: ALBUMIN 3.5 g/dL (3.4-5.0); TOTAL BILIRUBIN 0.2 mg/dL (0.0-1.0)
[2019-03-30] MEDS ORDERED: MORPHINE SULFATE 2 MG/ML SYR IVP ONE (06:05)
[2019-03-30 06:30] VITALS: BP 119/78
--- NOTE | 2019-03-30 06:30 | NUR ---
PT DISCHARGED WITH PAPERWORK. EDUCATED PT REGARDING MEDICATIONS AND D/C INSTRUCTIONS. PT VERBALIZED UNDERSTANDING OF TEACHING. TOLD PT TO FOLLOW UP WITH PCP AND WHEN TO RETURN TO ED. PT AT STABLE CONDITION. ALL QUESTIONS ANSWERED.
== END 2019-03-30 06:30 | disposition home or self-care (01) ==
LOC: MED 03:12
DX: K80.20 Calculus of gallbladder without cholecystitis without obstruction (principal); R11.2 Nausea with vomiting, unspecified; Z90.49 Acquired absence of other specified parts of digestive tract; Z79.1 Long term (current) use of non-steroidal anti-inflammatories (NSAID); Z79.899 Other long term (current) drug therapy; Z79.891 Long term (current) use of opiate analgesic
CPT/HCPCS: 36415; 76705; 80053; 83690; 85025; 96361; 96374; 96375; 99284; J1885; J2270; J2405; J7030; Q0092

== ENCOUNTER 2019-11-17 04:29 | Emergency (ER) | payer MEDICAID ==
[~2019-11-17] VITALS: Ht 154.9 cm; Wt 81.6 kg
[2019-11-17 04:42] VITALS: BP 116/73
--- NOTE | 2019-11-17 04:46 | NUR ---
34 Y/O FEMALE C/O ABD PAIN X 1 WEEK WITH N/V; PAIN 9/10; PT'S ABD FEELS FIRM AND PT STATES SHE FEELS BLOATED; DENIES DIARRHEA; SKIN IS PINK/WARM/DRY; AAOX4 WITH EVEN AND STEADY GAIT; HR EVEN AND REGULAR; PT DENIES ANY FEVER, CP, SOB, OR COUGH AT THIS TIME; VSS; PATIENT POSITIONED FOR COMFORT; HOB ELEVATED; BEDRAILS UP X2; BED DOWN AND LOCKED. ER MADE AWARE OF PT STATUS. PMH:GALLSTONES/APPENDECTOMY BHAVNA
[2019-11-17] MEDS ORDERED: NACL 0.9% 1,000 ML IV ONE (04:55)
[2019-11-17] MEDS ORDERED: ONDANSETRON 4 MG/2 ML VIAL IVP ONE (04:55)
[2019-11-17] MEDS ORDERED: KETOROLAC 30 MG/ML VIAL IVP ONE (04:55)
--- NOTE | 2019-11-17 05:05 | NUR ---
LABS DRAWN FROM IV START AND WALKED TO LAB
--- NOTE | 2019-11-17 05:18 | NUR ---
US AT BEDSIDE
[2019-11-17 05:26] LABS: BASOPHILS # (AUTO) 0.1 K/uL (0.00-0.22); BASOPHILS % (AUTO) 0.4 % (0.0-2.0); EOSINOPHILS # (AUTO) 0.1 K/uL (0-0.4); EOSINOPHILS % (AUTO) 0.9 % (0.0-4.0); HEMATOCRIT 35.4 % (36-48); HEMOGLOBIN 11.6 g/dL (12.0-16.0); LYMPHOCYTES # (AUTO) 2.2 K/uL (2.5-16.5); LYMPHOCYTES % (AUTO) 17.2 % (20.5-51.1); MEAN CORPUSCULAR HEMOGLOBIN 29 pg (27-31); MEAN CORPUSCULAR HGB CONC 33 g/dL (33-37); MEAN CORPUSCULAR VOLUME 89.1 fL (80-94); MONOCYTES # (AUTO) 0.8 K/uL (0.8-1.0); MONOCYTES % (AUTO) 5.9 % (1.7-9.3); NEUTROPHILS # (AUTO) 9.9 K/uL (1.8-7.7); NEUTROPHILS % (AUTO) 75.6 % (42.2-75.2); PLATELET COUNT (AUTO) 367 K/uL (140-450); RED BLOOD CELL COUNT(AUTO) 3.97 MIL/uL (4.20-5.40); RED CELL DISTRIBUTION WIDTH 13.3 % (11.6-13.7); WHITE BLOOD COUNT (AUTO) 13.1 K/uL (4.8-10.8)
--- NOTE | 2019-11-17 05:56 | NUR ---
PT RESTING IN BED IN POSITION OF COMFORT, BED LOW AND LOCKED, SIDERAILS UP, VSS, WILL CONTINUE TO MONITOR
[2019-11-17 06:02] LABS: ANION GAP 13.4 (8-16); CARBON DIOXIDE 24.4 mmol/L (21-32); CREATININE 0.7 mg/dL (0.6-1.3); POTASSIUM 3.8 mmol/L (3.5-5.1); TOTAL BILIRUBIN 0.2 mg/dL (0.0-1.0)
[2019-11-17 06:45] VITALS: BP 116/73
--- NOTE | 2019-11-17 06:45 | NUR ---
Patient discharged with v/s stable. Written and verbal after care instructions given and explained. Patient alert, oriented and verbalized understanding of instructions. Ambulatory with steady gait. All questions addressed prior to discharge. ID band removed. Patient advised to follow up with PMD. Rx of MOTRIN/ZOFRAN/TRAMADOL given. Patient educated on indication of medication including possible reaction and side effects. Opportunity to ask questions provided and answered.
== END 2019-11-17 06:45 | disposition home or self-care (01) ==
LOC: MED 04:29
DX: K80.20 Calculus of gallbladder without cholecystitis without obstruction (principal); R11.2 Nausea with vomiting, unspecified
CPT/HCPCS: 36415; 76705; 80053; 83690; 85025; 96361; 96374; 96375; 99284; J1885; J2405; J7030; Q0092